=== PATIENT | female | born 1990 | race Caucasian/White ===

== ENCOUNTER → 2017-06-28 | Outpatient (CLI) | payer BC | END | disposition home or self-care (01) | LOC: C.PAPS 10:03 | PROVIDERS: ATTEND Physician Assistant | DX: Z01.419 Encounter for gynecological examination (general) (routine) without abnormal findings (principal) ==

== ENCOUNTER 2019-01-22 07:56 | Inpatient (IN) ==
--- NOTE | 2019-01-22 08:10 | Labor Progress Brief Note ---
Date of Service January 22, 2019 was 1 cm and sent home now 5cm, admit for labor Assessment & Plan (1) Normal labor: Physical Exam Genitourinary: Manual OB Exam: + cervical dilation 5 cm, + cervical effacement 100% and + station -1
[2019-01-22] MEDS: LACTATED RINGER'S 1,000 ML IV PRN ×2 (08:20→09:13)
[2019-01-22] MEDS ORDERED: BUPIVACAINE 0.25% 30 ML VIAL ONE (08:27)
[2019-01-22] MEDS ORDERED: ePHEDrine sulfate 50 MG/ML AMP ONE (08:27)
[2019-01-22] MEDS ORDERED: fentaNYL citrate 100 MCG/2 ML VIAL ONE (08:27)
[2019-01-22] MEDS ORDERED: fentaNYL 2MCG/ML ROPIV 1.25MG/ML 100 ML BAG EPI ONE (08:28)
[2019-01-22 08:39] LABS: Hematocrit (blood only) 34.6 % (37-47); Hemoglobin 12.4 g/dL (12.0-16.0); Mean Corpuscular Hemoglobin 31.6 pg (25-34); Mean Platelet Volume 8.9 fL (7.4-10.4); Platelet Count 179 K/uL (130-400); RDW Coefficient of Variation 12.5 % (11.5-14.5); RDW Standard Deviation 40.2 fL (36.4-46.3); Red Blood Count 3.93 M/uL (4.2-5.4); White Blood Count 13.18 K/uL (4.8-10.8)
[2019-01-22 08:41] LABS: Mean Corpuscular Hgb Conc 35.8 g/dL (32-36)
[2019-01-22] MEDS ORDERED: ePHEDrine sulfate 50 MG/ML AMP IV PRN (09:02)
[2019-01-22] MEDS ORDERED: NALOXONE HCL 0.4 MG/1 ML VIAL/CARP IV PRN (09:02)
[2019-01-22] MEDS ORDERED: ONDANSETRON INJ 2 MG/ML 2 ML VIAL IV PRN (09:02)
[2019-01-22] MEDS ORDERED: NALOXONE HCL 1 MG in SODIUM CHLORIDE 0.9% 1000ML 1,000 ML IV PRN (09:02)
[2019-01-22] MEDS ORDERED: NALBUPHINE HCL INJ 10 MG/ML AMP IV PRN (09:02)
[2019-01-22] MEDS ORDERED: fentaNYL 2MCG/ML ROPIV 1.25MG/ML 100 ML BAG EPI PRN (09:02)
[2019-01-22] MEDS ORDERED: DiphenhydrAMINE HCL 50 MG/ML VIAL IV PRN (09:02)
--- NOTE | 2019-01-22 09:03 | Anesthesiology Consultation ---
Date of Service January 22, 2019 Assessment & Plan Chart Review Chart Review: Acceptable Risk for Surgery and Patient NOT seen in Pre Admission Testing Consults Requested none ASA ASA2 Proposed Anesthesia Anesthesia Type: Labor Epidural and CSE Risk / Benefits Reviewed With: PT / POA / Parent / Guardian, Accepts Plan and Informed Consent Obtained History Height/Weight Height: 5 ft 6 in Weight: 83.461 kg Allergies Allergy/AdvReac Type Severity Reaction Status Date / Time No Known Drug Allergies Allergy Verified 01/21/19 16:04 Medications Home Medications Medication Instructions Recorded Confirmed Last Taken prenat.vits,emy,[id number]-jcqae 1 tab PO DAILY 01/07/19 01/22/19 01/21/19 21:30 Active Medications Generic Name Dose Route Start Last Admin Trade Name Freq PRN Reason Stop Dose Admin Lactated Ringer's 1,000 mls @ 125 mls/hr 01/22/19 08:06 01/22/19 08:20 Lr IV 01/24/19 08:05 999 mls/hr .Q8H PRN Administration L&D Protocol Protocol NPO Date Last Intake of Fluids: 01/22/19 Time Last Intake of Fluids: 07:00 Date Last Intake of Solids: 01/21/19 Time Last Intake of Solids: 21:00 Past Medical History Medical History Anxiety no meds Varicella Exercise / Class Metabolic Activity II 4-5 Yardwork/Stairs/Walk up hill Past Family History Family History Father Alcohol abuse Aunt Breast cancer Diabetes Hypertension Mother Breast cancer Diabetes Hypertension Grandfather (Maternal) Diabetes Grandmother (Maternal) Diabetes Sister Hypertension Uncle Hypertension Past Surgical History Surgical History No pertinent past surgical history Past Anesthesia History No Hx of Anesthesia Complications and No Family Hx of Anesthesia Complications History of PONV No Hx of PONV and No Hx of Motion Sickness Social History Smoking Status: Never smoker Hx Alcohol Use: No Hx Substance Use: No substance use type: does not use Review of Systems no chest pain or sob Physical Exam Vital Signs Last Vital Signs Temp 36.6 C 01/22/19 08:37 Pulse 72 01/22/19 09:01 Resp 20 01/22/19 08:37 BP 148/86 H 01/22/19 08:37 Pulse Ox 100 01/22/19 09:01 ENMT Mouth: no TMJ abnormality Thyromental Distance: > or= 3.5 Finger Breadths Mallampati Class: II Neck normal visual inspection Respiratory normal respiratory effort Auscultation: lungs clear to auscultation bilaterally Cardiovascular Rate/Rhythm: regular rate and regular rhythm Musculoskeletal Spine: normal cervical ROM Neurologic moves all extremities Psychiatric Orientation: alert and oriented x 3 Testing Laboratory Results 01/22/19 08:27
[2019-01-22] MEDS ORDERED: OXYTOCIN 30 UNITS/500 ML BAG IV PRN ×2 (12:33→17:14)
[2019-01-22] MEDS: OXYTOCIN 30 UNITS/500 ML BAG IV PRN ×2 (16:30→17:24)
[2019-01-22] MEDS ORDERED: BISACODYL 10 MG SUPP PR PRN (17:14)
[2019-01-22] MEDS ORDERED: HYDROCORTISONE ACETATE 25 MG SUPP PR PRN (17:14)
[2019-01-22] MEDS ORDERED: DIPHTHERIA/TETANUS/PERTUSSIS 0.5 ML SYR/VIAL IM ONE (17:14)
[2019-01-22] MEDS ORDERED: BENZOCAINE 20% AER SPR 82.5 GM CAN EXT PRN (17:14)
[2019-01-22] MEDS ORDERED: ACETAMINOPHEN 325 MG TAB PO PRN (17:14)
[2019-01-22] MEDS ORDERED: OXYCODONE/ACETAMINOPHEN 5mg/325mg TAB PO PRN (17:14)
[2019-01-22] MEDS ORDERED: SUPERCREAM 0.870% 15 GM JAR EXT PRN (17:14)
--- NOTE | 2019-01-22 17:30 | Anesthesia Procedure Note ---
Date of Service January 22, 2019 Anesthesia Post Epidural Note Vital Signs Vital Signs: Temp Pulse Resp BP Pulse Ox 37.6 C H 77 20 118/71 94 01/22/19 11:39 01/22/19 17:22 01/22/19 17:08 01/22/19 17:22 01/22/19 16:30 Pain Intensity Bilateral Anterior Abdomen: Pain Intensity: 0 Notes Mental Status: alert / awake / arousable and participated in evaluation Nausea / Vomiting: adequately controlled Pain: adequately controlled Airway Patency, RR, SpO2: stable & adequate BP & HR: stable & adequate Hydration State: stable & adequate Neuraxial Anesthesia: was administered and sensory block is resolving Anesthetic Complications: no major complications apparent and Pt Satisfied with anesthetic care Epidural: Removed without complications and With tip intact
[2019-01-22] MEDS: IBUPROFEN 600 MG TAB PO PRN (19:34)
[2019-01-22] MEDS: DOCUSATE SODIUM 100 MG CAP PO SCH (20:04)
--- NOTE | 2019-01-22 22:21 | Delivery Summary ---
DATE OF OPERATION: 01/22/2019 The patient is a 28-year-old nulligravida white female who presented in active labor at 5 cm dilated. She received effective epidural analgesia. Membranes were ruptured for clear fluid. She progressed to full dilation and she pushed effectively over intact perineum for delivery of a viable female . Mouth and nasopharynx were suctioned upon delivery of the head. There was moderate meconium present at the fluid at the time of delivery. The rest of the infant delivered easily and was placed on the mother's abdomen for further attention and drying. There was spontaneous crying and the infant was vigorous. The cord was then clamped after 30 seconds and cut. Placenta was then expressed intact with a 3-vessel cord. bleeding was controlled with dilute Pitocin. A second-degree perineal laceration was repaired with 3-0 chromic in the usual fashion. Estimated blood loss was 500 mL. Mother and infant were doing well after delivery. I attest to the content of the Intraoperative Record and any orders documented therein. Any exception s are noted below.
--- NOTE | 2019-01-23 06:49 | Obstetrical Progress Note ---
Date of Service <Viraj Mcpherson DO - Last Filed: 01/23/19 06:49> January 23, 2019 Assessment & Plan <DO Mirtha Aguilar Last Filed: 01/23/19 06:49> (1) Normal labor: -PPD#1 -Vitals reviewed, WNL (Tmax 37.6) - GBS -, Blood Type A+ - Clinically stable. - Feels well today. Eating well, voiding well, ambulating well. - Pain well controlled. - Routine post- care - Encouraged . - Questions answered this morning. Day #:: 1 Subjective <DO Mirtha Aguilar Last Filed: 01/23/19 06:49> Ambulation: ambulating normally Voiding: no voiding problems Passing Gas:: Yes (passing stool) Diet Tolerance:: regular diet Lochia:: Moderate Current Pain Level(1-10): 3 (improves with analgesics) Patient is a 28 PPD#1. Patient states that she is feeling well today and that her pain is well controlled. She has no other complaints at this time. Constitutional: + chills (noted a 1x chills last night, has resolved since); no fever Respiratory: no cough, no dyspnea and no wheezing Cardiovascular: no chest pain, no dyspnea, no palpitations, no edema and no calf pain Breast: no breast pain Gastrointestinal: no abdominal pain, no nausea and no vomiting Genitourinary (female): no dysuria and no difficulty urinating Neurologic: no headache(s) Physical Exam <DO Mirtha Aguilar Last Filed: 01/23/19 06:49> Constitutional WD/WN, vitals as above Respiratory normal respiratory effort, lungs clear to auscultation Cardiovascular Rate/Rhythm: regular rate and regular rhythm Heart Sounds: normal S1 and normal S2; no click, no gallop, no murmur and no cardiac rub Extremities: no calf tenderness and no edema Gastrointestinal (Abdomen) Inspection/Auscultation: abdomen normal to inspection and normal bowel sounds Percussion/Palpation: abdomen soft; abdomen nontender Genitourinary OB Exam Abdomen: + fundal height Fundus: + firm and + relation to umbilicus (2cm below); not tender and not boggy Results & Data <DO Mirtha Aguilar Last Filed: 01/23/19 06:49> Vital Signs (Past 12 Hours) Vital Signs Temp Pulse Resp BP Pulse Ox 01/23/19 04:30 36.6 C 61 20 106/65 01/23/19 00:15 37.1 C 68 20 115/66 01/22/19 19:27 37.3 C 88 18 129/80 96 Laboratory Results Abnormal lab results 01/22/19 Range/Units 08:27 WBC 13.18 H (4.8-10.8) K/uL RBC 3.93 L (4.2-5.4) M/uL Hct 34.6 L (37-47) % Medications Administered Current Inpatient Medications Acetaminophen (Tylenol) 650 mg PO Q6H PRN PRN Reason: Pain/RAMIREZ/Fever Stop: 02/21/19 17:13 Benzocaine (Dermoplast Pain Relieving [place]) 1 appln EXT PRN PRN PRN Reason: Perineal Discomfort Stop: 02/21/19 17:13 Last Admin: 01/22/19 20:03 Dose: 1 appln Documented by: Bisacodyl (Dulcolax) 5 mg PO 1999 [facility] Stop: 01/23/19 20:01 Bisacodyl (Dulcolax) 10 mg [place] DAILY PRN PRN Reason: No BM on 2nd post- day Stop: 02/21/19 17:13 Cocaine HCl (Supercream 0.870%) 1 gm EXT BID PRN PRN Reason: Hemorrhoidal Inflammation Stop: 02/05/19 17:13 Docusate Sodium (Colace) 100 mg PO DAILY@08,21 [facility] Stop: 02/21/19 20:59 Last Admin: 01/22/19 20:04 Dose: 100 mg Documented by: Hydrocortisone (Anusol Hc) 25 mg [place] BID PRN PRN Reason: Hemorrhoidal Inflammation Stop: 02/21/19 17:13 Lactated Ringer's (Lr) 1,000 mls @ 125 mls/hr IV .Q8H PRN; Protocol PRN Reason: L&D Protocol Stop: 01/24/19 08:05 Last Infusion: 01/22/19 16:30 Dose: Infused Documented by: Oxytocin (Pitocin) 30 units in 500 mls @ 333.333 mls/hr IV .Q1H30M PRN; Protocol PRN Reason: Bleeding Control Stop: 02/21/19 08:05 Last Admin: 01/22/19 17:24 Dose: 19.98 units/hr, 333 mls/hr Documented by: Oxytocin (Pitocin) 30 units in 500 mls @ 1 mls/hr IV .Q24H PRN; Protocol PRN Reason: Labor Induction/Augmentation Stop: 01/24/19 12:32 Oxytocin (Pitocin) 30 units in 500 mls @ 333.333 mls/hr IV .Q1H30M PRN; Protocol PRN Reason: Bleeding Control Stop: 02/21/19 17:13 Ibuprofen (Motrin) 600 mg PO Q4H PRN PRN Reason: Pain/RAMIREZ/Cramping/Fever Stop: 02/21/19 17:08 Last Admin: 01/22/19 19:34 Dose: 600 mg Documented by: Oxycodone/Acetaminophen (Percocet 5mg/325mg) 1 tab PO Q4H PRN PRN Reason: Pain not relieved by... Stop: 02/05/19 17:13 Prenat Multivit/Certified Respiratory Therapist/Iron/Folic Ac ( Vitamin) 1 tab PO DAILY@08 [facility] Stop: 02/22/19 07:59 <Thuy Monge MD, FACOG - Last Filed: 01/23/19 08:44> Co-Signing Physician Notes Resident Physician Supervision Note: I interviewed and examined the patient. Discussed with Dr. Mcpherson and agree with findings and plan as documented in the note. Any exceptions or clarifications are listed here: [None] Documented By: Thuy Monge MD, FACOG Resident Activity Tracking <Viraj Mcpherson DO - Last Filed: 01/23/19 06:49> Resident Involvement: Resident Care Provided Care Provided: OB Delivery
[2019-01-23 07:58] LABS: Hematocrit (blood only) 28.4 % (37-47); Mean Corpuscular Hemoglobin 31.6 pg (25-34); Mean Corpuscular Hgb Conc 35.2 g/dL (32-36); Mean Corpuscular Volume 89.9 fL (80-100); Mean Platelet Volume 9.1 fL (7.4-10.4); Platelet Count 155 K/uL (130-400); RDW Coefficient of Variation 12.7 % (11.5-14.5); RDW Standard Deviation 41.5 fL (36.4-46.3); Red Blood Count 3.16 M/uL (4.2-5.4); White Blood Count 15.06 K/uL (4.8-10.8)
[2019-01-23] MEDS: IBUPROFEN 600 MG TAB PO PRN ×4 (08:34→20:42)
[2019-01-23] MEDS: DOCUSATE SODIUM 100 MG CAP PO SCH ×2 (08:34→20:42)
[2019-01-23] MEDS: PRENATAL VITAMIN 1 TAB PO SCH (08:34)
[2019-01-23] MEDS ORDERED: BISACODYL 5 MG TABEC PO SCH (20:00)
[2019-01-24] MEDS: IBUPROFEN 600 MG TAB PO PRN ×2 (06:32→11:16)
--- NOTE | 2019-01-24 07:33 | Obstetrical Progress Note ---
Date of Service <Viraj Mcpherson DO - Last Filed: 01/24/19 07:33> January 24, 2019 Assessment & Plan <DO Mirtha Aguilar Last Filed: 01/24/19 07:33> (1) Normal labor: -PPD#2 -Vitals reviewed, WNL (Tmax 36.6) - GBS -, Blood Type A+ - Clinically stable. - Feels well today. Eating well, voiding well, ambulating well. - Pain well controlled. - Routine post- care - Encouraged . - Questions answered this morning. - Counseled on D/C including follow-up and medications. Day #:: 2 Subjective <DO Mirtha Aguilar Last Filed: 01/24/19 07:33> Ambulation: ambulating normally Voiding: no voiding problems Passing Gas:: Yes Diet Tolerance:: regular diet Lochia:: Small Feeding Type:: breast feeding Current Pain Level(1-10): 3 (improves with analgesics) Patient is a 28 PPD#2. Patient states that she is feeling well today and that her pain is well controlled. She has no other complaints at this time. Constitutional: no fever and no chills Respiratory: no cough, no dyspnea and no wheezing Cardiovascular: no chest pain, no dyspnea, no palpitations, no edema and no calf pain Breast: + breast pain (nipple pain with feeding) Gastrointestinal: no abdominal pain, no nausea and no vomiting Genitourinary (female): no dysuria and no difficulty urinating Neurologic: no headache(s) Physical Exam <DO Mirtha Aguilar Last Filed: 01/24/19 07:33> Constitutional WD/WN, vitals as above Respiratory normal respiratory effort, lungs clear to auscultation Cardiovascular Rate/Rhythm: regular rate and regular rhythm Heart Sounds: normal S1 and normal S2; no click, no gallop, no murmur and no cardiac rub Extremities: no calf tenderness and no edema Gastrointestinal (Abdomen) Inspection/Auscultation: abdomen normal to inspection and normal bowel sounds Percussion/Palpation: abdomen soft; abdomen nontender Genitourinary OB Exam Abdomen: + fundal height Fundus: + firm and + relation to umbilicus (3cm below); not tender and not boggy Results & Data <Viraj JohnsonnDO Shannon Last Filed: 01/24/19 07:33> Vital Signs (Past 12 Hours) Vital Signs Temp Pulse Resp BP Pulse Ox 01/24/19 00:00 36.6 C 75 18 115/70 99 Laboratory Results Abnormal lab results 01/23/19 Range/Units 07:35 WBC 15.06 H (4.8-10.8) K/uL RBC 3.16 L (4.2-5.4) M/uL Hgb 10.0 L (12.0-16.0) g/dL Hct 28.4 L (37-47) % Medications Administered Current Inpatient Medications Acetaminophen (Tylenol) 650 mg PO Q6H PRN PRN Reason: Pain/RAMIREZ/Fever Stop: 02/21/19 17:13 Benzocaine (Dermoplast Pain Relieving [place]) 1 appln EXT PRN PRN PRN Reason: Perineal Discomfort Stop: 02/21/19 17:13 Last Admin: 01/22/19 20:03 Dose: 1 appln Documented by: Bisacodyl (Dulcolax) 10 mg [place] DAILY PRN PRN Reason: No BM on 2nd post- day Stop: 02/21/19 17:13 Cocaine HCl (Supercream 0.870%) 1 gm EXT BID PRN PRN Reason: Hemorrhoidal Inflammation Stop: 02/05/19 17:13 Docusate Sodium (Colace) 100 mg PO DAILY@08,21 [facility] Stop: 02/21/19 20:59 Last Admin: 01/23/19 20:42 Dose: 100 mg Documented by: Hydrocortisone (Anusol Hc) 25 mg [place] BID PRN PRN Reason: Hemorrhoidal Inflammation Stop: 02/21/19 17:13 Lactated Ringer's (Lr) 1,000 mls @ 125 mls/hr IV .Q8H PRN; Protocol PRN Reason: L&D Protocol Stop: 01/24/19 08:05 Last Infusion: 01/22/19 16:30 Dose: Infused Documented by: Oxytocin (Pitocin) 30 units in 500 mls @ 333.333 mls/hr IV .Q1H30M PRN; Protocol PRN Reason: Bleeding Control Stop: 02/21/19 08:05 Last Admin: 01/22/19 17:24 Dose: 19.98 units/hr, 333 mls/hr Documented by: Oxytocin (Pitocin) 30 units in 500 mls @ 1 mls/hr IV .Q24H PRN; Protocol PRN Reason: Labor Induction/Augmentation Stop: 01/24/19 12:32 Oxytocin (Pitocin) 30 units in 500 mls @ 333.333 mls/hr IV .Q1H30M PRN; Protocol PRN Reason: Bleeding Control Stop: 02/21/19 17:13 Ibuprofen (Motrin) 600 mg PO Q4H PRN PRN Reason: Pain/RAMIREZ/Cramping/Fever Stop: 02/21/19 17:08 Last Admin: 01/24/19 06:32 Dose: 600 mg Documented by: Oxycodone/Acetaminophen (Percocet 5mg/325mg) 1 tab PO Q4H PRN PRN Reason: Pain not relieved by... Stop: 02/05/19 17:13 Prenat Multivit/[place]/Iron/Folic Ac ( Vitamin) 1 tab PO DAILY@08 [facility] Stop: 02/22/19 07:59 Last Admin: 01/23/19 08:34 Dose: 1 tab Documented by: <Scotty Webber Jr, MD, FACOG - Last Filed: 01/24/19 07:50> Co-Signing Physician Notes Resident Physician Supervision Note: I was present with Dr. Crow during the history and exam. I discussed the case with the resident and agree with the findings and plan as documented in the note. Any exceptions or clarifications are listed here: Patient desires discharge. Instructions given, f/u in 6 weeks Documented By: Scotty Webber Jr, MD, FACOG Resident Activity Tracking <Viraj Mcpherson DO - Last Filed: 01/24/19 07:33> Resident Involvement: Resident Care Provided Care Provided: OB Delivery
[2019-01-24 08:29] LABS: Hematocrit (blood only) 27.7 % (37-47); Hemoglobin 9.7 g/dL (12.0-16.0)
[2019-01-24] MEDS: DOCUSATE SODIUM 100 MG CAP PO SCH (09:06)
[2019-01-24] MEDS: PRENATAL VITAMIN 1 TAB PO SCH (09:06)
== END 2019-01-24 13:05 | disposition home or self-care (01) | DRG 807 ==
LOC: 4S1 07:56 → 4S2 19:24

== ENCOUNTER 2021-05-24 09:11 | Inpatient (IN) ==
[2021-05-24] MEDS ORDERED: OXYTOCIN 30 UNITS/500 ML BAG IV PRN ×2 (10:02→15:08)
--- NOTE | 2021-05-24 10:07 | History & Physical Report ---
Date of Service May 24, 2021 Assessment & Plan (1) Normal labor: Plan: IUP at 38+ weeks in active labor requesting epidural analgesia currently having COVID symptoms including nasal congestion and history of recent fever. will do COVID testing for symptomatic patient. anticipate vaginal delivery History of Present Illness Primary Care Provider: Hiwot Drew DO Patient is a 30 yo white female EDC 06/03/21 who presents with regular contractions since 0300 this morning. No SPROM. otherwise uncomplicated except anxiety treated with Buspar. GBS negative blood type- A positive Allergies Allergy/AdvReac Type Severity Reaction Status Date / Time No Known Drug Allergies Allergy Verified 05/18/21 09:17 Home Medications Medication Instructions Recorded Confirmed Type prenat.vits,emy,ysp-zsjq-szreu 1 tab PO DAILY 01/07/19 05/24/21 History magnesium PO 12/31/20 05/18/21 History buspirone 10 mg tablet 10 mg PO DAILY tab 03/18/21 05/24/21 History buspirone 10 mg tablet 20 mg PO BID tab 03/18/21 05/24/21 History Patient History Medical History Anxiety Varicella Surgical History No pertinent past surgical history Family History Father Alcohol abuse Aunt Breast cancer Diabetes Hypertension Mother Breast cancer Got genetic testing, pt reports that it was not genetically related Diabetes Hypertension Grandfather (Maternal) Diabetes Grandmother (Maternal) Diabetes Sister Hypertension Uncle Hypertension Other Colorectal cancer Denies family history of Ovarian cancer Uterine cancer Social History Smoking Status: Never smoker Hx Alcohol Use: No Hx Substance Use: No Preferred Language: Moldovan Communication Ability: Effective Director Community Health Nursing Required: No Beliefs That Will Affect Care: None marital status: marital status details: Tom Marin (30) [phone] Current Living Situation: Spouse Current Living Situation Comment: lives with spouse, child, dog, cat-spouse changing litter current occupational status: employed current occupation: Teacher [employer] [place] Other Information That Helps Us Care for You: No Feels Safe at Home: Yes Safety Concerns: Feels Safe At This Time Assistive Devices: None Review of Systems All systems reviewed & are unremarkable except as noted in HPI & below Physical Exam Constitutional: WD/WN, vitals as above Respiratory: normal respiratory effort, lungs clear to auscultation Cardiovascular: RRR, no murmur, no edema Psychiatric: A+Ox3, euthymic affect Genitourinary: OB Exam Abdomen: + vertex, + estimated weight (8-9 pounds) and + regular contractions Manual OB Exam: + cervical dilation 4 cm, + cervical effacement 90% and + station -1 OB Exam Monitor Tracing: + external FHT monitor used, + external uterine monitor used, + normal FHT variability and + variable decelerations isolated Results & Data ([place]) Vital Signs (Past 12 Hours) Vital Signs Temp Pulse Resp BP 05/24/21 09:38 97.7 F 20 05/24/21 09:35 64 122/63 Coding Level of Care Code None Diagnoses Normal labor O80; Z37.9
[2021-05-24] MEDS: LACTATED RINGER'S 1,000 ML IV PRN ×2 (10:17→11:16)
[2021-05-24 10:33] LABS: Hematocrit (blood only) 39.2 % (37-47); Hemoglobin 13.5 g/dL (12.0-16.0); Mean Corpuscular Hemoglobin 31.1 pg (25-34); Mean Corpuscular Hgb Conc 34.4 g/dL (32-36); Mean Corpuscular Volume 90.3 fL (80-100); Mean Platelet Volume 8.7 fL (7.4-10.4); Platelet Count 178 K/uL (130-400); RDW Coefficient of Variation 13.3 % (11.5-14.5); Red Blood Count 4.34 M/uL (4.2-5.4)
[2021-05-24] MEDS ORDERED: SODIUM CHLORIDE 0.9% INJ 10 ML VIAL ONE (11:03)
[2021-05-24] MEDS ORDERED: fentaNYL citrate 100 MCG/2 ML VIAL ONE (11:03)
[2021-05-24] MEDS ORDERED: BUPIVACAINE 0.25% 30 ML VIAL ONE (11:03)
[2021-05-24] MEDS ORDERED: ePHEDrine sulfate 50 MG/ML AMP ONE (11:03)
[2021-05-24] MEDS ORDERED: fentaNYL 2MCG/ML ROPIVACAINE 1.25MG/ML 100 ML BAG EPI ONE (11:05)
[2021-05-24 11:07] LABS: Influenza A virus by PCR Negative (Neg); Influenza B virus by PCR Negative (Neg); RSV by PCR Negative (Neg); SARS CoV2 RNA(COVID-19) InHosp NEGATIVE (Negative)
[2021-05-24] MEDS ORDERED: BUTORPHANOL TARTRATE 1 MG/ML VIAL IV PRN (11:24)
--- NOTE | 2021-05-24 11:47 | Anesthesiology Consultation ---
Date of Service May 24, 2021 Assessment & Plan (1) Encounter for pre-operative examination: Chart Review Chart Review: Acceptable Risk for Surgery and Patient NOT seen in Pre Admission Testing Consults Requested none ASA ASA2 Proposed Anesthesia Anesthesia Type: Labor Epidural Risk / Benefits Reviewed With: PT / POA / Parent / Guardian, Accepts Plan and Informed Consent Obtained History Height/Weight Height: 5 ft 6 in Weight: 90.718 kg Allergies Allergy/AdvReac Type Severity Reaction Status Date / Time No Known Drug Allergies Allergy Verified 05/18/21 09:17 Medications Home Medications Medication Instructions Recorded Confirmed Last Taken prenat.vits,emy,akj-fnwt-dzadh 1 tab PO DAILY 01/07/19 05/24/21 05/23/21 magnesium PO 12/31/20 05/18/21 Unknown buspirone 10 mg tablet 10 mg PO DAILY tab 03/18/21 05/24/21 05/23/21 13:05 buspirone 10 mg tablet 20 mg PO BID tab 03/18/21 05/24/21 05/24/21 0700 Active Medications Generic Name Dose Route Start Last Admin Trade Name Freq PRN Reason Stop Dose Admin Butorphanol Tartrate 1 mg 05/24/21 11:24 05/24/21 11:31 Butorphanol Tartrate 1 Mg/Ml Vial IV 06/23/21 11:23 1 mg Q2HWA PRN Administration Pain Lactated Ringer's 1,000 mls @ 125 mls/hr 05/24/21 10:02 05/24/21 11:58 Lr IV 05/26/21 10:01 999 mls/hr .Q8H PRN Infusion L&D Protocol Protocol NPO Date Last Intake of Fluids: 05/24/21 Time Last Intake of Fluids: 12:22 Date Last Intake of Solids: 05/24/21 Time Last Intake of Solids: 12:22 Past Medical History Medical History Anxiety Varicella Exercise / Class Metabolic Activity II 4-5 Yardwork/Stairs/Walk up hill Past Family History Family History Father Alcohol abuse Aunt Breast cancer Diabetes Hypertension Mother Breast cancer Got genetic testing, pt reports that it was not genetically related Diabetes Hypertension Grandfather (Maternal) Diabetes Grandmother (Maternal) Diabetes Sister Hypertension Uncle Hypertension Other Colorectal cancer Denies family history of Ovarian cancer Uterine cancer Past Surgical History Surgical History No pertinent past surgical history Past Anesthesia History No Hx of Anesthesia Complications History of PONV No Hx of PONV Social History Smoking Status: Never smoker Hx Alcohol Use: No Hx Substance Use: No substance use type: does not use Review of Systems Patient denies history of abnormal bleeding or bleeding disorder. Patient denies active use of anticoagulants other than low dose aspirin. Patient denies numbness, tingling or weakness in lower extremities. Physical Exam Vital Signs Last Vital Signs Temp 36.7 C 05/24/21 11:36 Pulse 77 05/24/21 11:40 Resp 20 05/24/21 11:36 BP 113/58 L 05/24/21 11:36 Pulse Ox 98 05/24/21 11:40 Constitutional not obese (gravid) ENMT Mouth: no TMJ abnormality and oral opening not small Thyromental Distance: > or= 3.5 Finger Breadths Mallampati Class: II Neck normal visual inspection; neck extension not limited Respiratory normal respiratory effort Cardiovascular Rate/Rhythm: regular rate and regular rhythm Neurologic moves all extremities Psychiatric Orientation: alert and oriented x 3 Testing Laboratory Results 05/24/21 10:16
[2021-05-24] MEDS ORDERED: diphenhydrAMINE 50 MG/ML VIAL IV PRN (12:35)
[2021-05-24] MEDS ORDERED: fentaNYL 2MCG/ML ROPIVACAINE 1.25MG/ML 100 ML BAG EPI PRN (12:35)
[2021-05-24] MEDS ORDERED: NALBUPHINE HCL INJ 10 MG/ML AMP IV PRN (12:35)
[2021-05-24] MEDS ORDERED: NALOXONE HCL 1 MG in SODIUM CHLORIDE 0.9% 1000ML 1,000 ML IV PRN (12:35)
[2021-05-24] MEDS ORDERED: ePHEDrine sulfate 50 MG/ML AMP IV PRN (12:35)
[2021-05-24] MEDS ORDERED: NALOXONE HCL 0.4 MG/1 ML VIAL/CARP IV PRN (12:35)
[2021-05-24] MEDS ORDERED: ONDANSETRON INJ 2 MG/ML 2 ML VIAL IV PRN (12:35)
[2021-05-24] MEDS ORDERED: oxyCODONE/ACETAMINOPHEN 5mg/325mg TAB PO PRN (15:08)
[2021-05-24] MEDS ORDERED: DIPHTHERIA/TETANUS/PERTUSSIS 0.5 ML SYR/VIAL IM ONE (15:08)
[2021-05-24] MEDS ORDERED: ACETAMINOPHEN 325 MG TAB PO PRN (15:08)
[2021-05-24] MEDS ORDERED: BENZOCAINE 20% AER SPR 82.5 GM CAN EXT PRN (15:08)
[2021-05-24] MEDS ORDERED: bisacodyL 10 MG SUPP PR PRN (15:08)
[2021-05-24] MEDS ORDERED: HYDROCORTISONE ACETATE 25 MG SUPP PR PRN (15:08)
[2021-05-24] MEDS ORDERED: SUPERCREAM 0.870% 15 GM JAR EXT PRN (15:08)
--- NOTE | 2021-05-24 16:36 | Anesthesia Procedure Note ---
Date of Service May 24, 2021 Anesthesia Post Epidural Note Vital Signs Vital Signs: Temp Pulse Resp BP Pulse Ox 36.8 C 69 20 118/55 L 92 05/24/21 13:32 05/24/21 16:04 05/24/21 16:00 05/24/21 16:04 05/24/21 15:00 Pain Intensity Bilateral Abdomen: Pain Intensity: 0 Notes Mental Status: alert / awake / arousable and participated in evaluation Patient Amnestic to Procedure: No Nausea / Vomiting: adequately controlled Pain: adequately controlled Airway Patency, RR, SpO2: stable & adequate BP & HR: stable & adequate Hydration State: stable & adequate Neuraxial Anesthesia: was administered and sensory block is resolving Anesthetic Complications: no major complications apparent and Pt Satisfied with anesthetic care Epidural: Removed without complications and With tip intact
[2021-05-24] MEDS ORDERED: Nursing to Pharmacy Communication SCH (17:15)
--- NOTE | 2021-05-24 18:31 | Delivery Summary ---
Vaginal Delivery Summary Date of Service May 24, 2021 Vaginal Delivery Summary and 1st Degree LAC Patient is a 30-year-old 3 para 1-0-1-1 white female who presented at 38-5/7 weeks with regular contractions. She requested epidural analgesia upon arrival in labor and delivery. Membranes ruptured for clear fluid spontaneously. She progressed to full dilation with the urge to push. She pushed effectively over intact perineum for delivery of a viable female in the vertex presentation. After the head was delivered the shoulders delivered with hyperflexion of the hips. The rest of the delivered easily. Infant was placed on the mother's abdomen for further attention and drying. She was crying and moving all 4 limbs. After 1 minute the cord was clamped and cut. After obtaining cord blood sample the placenta was expressed intact with a three-vessel cord. bleeding was controlled with dilute Pitocin and fundal massage. A first-degree perineal laceration was repaired with 3-0 chromic in the usual fashion. Estimated blood loss was 300 cc. She straight cathed for 300 cc of clear urine after delivery. Mother and were doing well post delivery[place] [facility] [place] Charge Delivery Type Details: and 1st Degree LAC
[2021-05-24] MEDS: busPIRone 5 MG TAB PO SCH (18:35)
[2021-05-24] MEDS ORDERED: busPIRone 5 MG TAB PO SCH (21:00)
[2021-05-24] MEDS: DOCUSATE SODIUM 100 MG CAP PO SCH (21:29)
[2021-05-24] MEDS: IBUPROFEN 600 MG TAB PO PRN (21:56)
[2021-05-25] MEDS: busPIRone 5 MG TAB PO SCH (06:19)
[2021-05-25 06:56] LABS: Hematocrit (blood only) 36.2 % (37-47); Hemoglobin 12.6 g/dL (12.0-16.0); Mean Corpuscular Hemoglobin 31.7 pg (25-34); Mean Corpuscular Hgb Conc 34.8 g/dL (32-36); Mean Platelet Volume 8.8 fL (7.4-10.4); Platelet Count 168 K/uL (130-400); RDW Coefficient of Variation 13.4 % (11.5-14.5); RDW Standard Deviation 44.4 fL (36.4-46.3); Red Blood Count 3.98 M/uL (4.2-5.4); White Blood Count 10.68 K/uL (4.8-10.8)
--- NOTE | 2021-05-25 06:57 | Obstetrical Progress Note ---
Date of Service <Wilmer Avendaño MD - Last Filed: 05/25/21 07:36> May 25, 2021 Assessment & Plan <Wilmer Avendaño MD - Last Filed: 05/25/21 07:36> (1) Encounter for care and examination after delivery: PPD 1: stable, routine management * patient voiding and ambulating without difficulty * pain well controlled on analgesia * tolerating regular diet * * anticipate d/c today * 6-week OB outpatient follow-up <Thuy Monge MD, FACOG - Last Filed: 05/25/21 07:42> (1) Encounter for care and examination after delivery: Subjective <Wilmer Avendaño MD - Last Filed: 05/25/21 07:36> Yris is a 30-year-old who is now PPD 1 following spontaneous vaginal delivery at 38.5 weeks. Reports feeling well overall this morning. Some abdominal cramping & 4/10 pain well managed on analgesics. Voiding well. Tolerating meals well and able to ambulate without difficulty. Some persistent l ochia with some improvement this morning. . Review of Systems Denies fever, chills, sweats Denies shortness of breath, difficulty breathing, chest pain, palpitations, chest pressure. Denies breast pain. Denies dysuria. Denies headache or changes in vision Physical Exam <Wilmer Avendaño MD - Last Filed: 05/25/21 07:36> General: Alert, oriented. No acute distress. Cardiac: Regular rate and rhythm, no murmurs/rubs/gallops. Respiratory: Clear to auscultation bilaterally a/p, no wheezes/rales/rhonchi. No increased work of breathing. Symmetrical chest rise. No respiratory distress. Abdomen: Soft, nontender, nondistended. Bowel sounds present. Uterus: Uterine fundus firm, palpable 1 cm below umbilicus. Lower Extremities: No lower extremity edema or swelling. No deep calf pain. [place]'s negative bilaterally.. Results & Data ([facility]) <Wilmer Avendaño MD - Last Filed: 05/25/21 07:36> Vital Signs (Past 12 Hours) Vital Signs Temp Pulse Resp BP 05/25/21 02:40 36.6 C 72 18 102/65 05/24/21 23:35 37.0 C 69 18 105/66 05/24/21 19:25 37.2 C 92 H 18 134/78 <Thuy Monge MD, FACOG - Last Filed: 05/25/21 07:42> Co-Signing Physician Notes Resident Physician Supervision Note: I was present with Dr. Avendaño during the history and exam. I discussed the case with the resident and agree with the findings and plan as documented in the note. Any exceptions or clarifications are listed here: [None] Documented By: Thuy Monge MD, FACOG Resident Activity Tracking <Wilmer Avendaño MD - Last Filed: 05/25/21 07:36> Resident Involvement: Resident Care Provided Care Provided: OB Delivery
[2021-05-25] MEDS ORDERED: busPIRone 5 MG TAB PO SCH ×2 (08:00→12:00)
[2021-05-25] MEDS ORDERED: PRENATAL VITAMIN 1 TAB PO SCH (08:00)
[2021-05-25] MEDS: DOCUSATE SODIUM 100 MG CAP PO SCH (08:29)
[2021-05-25] MEDS: IBUPROFEN 600 MG TAB PO PRN ×2 (08:29→13:33)
[2021-05-25] MEDS ORDERED: bisacodyL 5 MG TABEC PO SCH (20:00)
== END 2021-05-25 16:45 | disposition home or self-care (01) | DRG 807 ==
LOC: OPB 09:11 → 4S1 09:12 → 4S2 17:50